=== PATIENT | male | born 1985 | race Caucasian/White ===

== ENCOUNTER 2016-09-27 17:11 | Emergency (ER) | payer OTHER ==
--- NOTE | 2016-09-27 18:40 | UCPHY ---
H & P Patient Type: New Chief Complaint Nursing Narrative: c/o URI 3 wk ago - since then pain in throat with lum, this am chest tightness denies cough- HPI/ROS: HPI CHIEF COMPLAINT: Lump in throat, cough HISTORY OF PRESENT ILLNESS: This patient 30-year-old male, otherwise healthy no significant medical or surgical history he tells me approximately 2-3 weeks ago he had upper respiratory tract infection since then over the past 3 weeks he has had a sensation that there is a lump in his throat when he swallows. He denies fever, neck pain, meningeal signs, headache, chest pain, shortness of breath. At times he endorses a cough. States for the past 3 days the lump in his throat has gotten worse. He is able swallow he does not have any drooling. Past Medical History: No significant medical history Past Surgical History: no significant surgical history Social History: Daily alcohol use, denies drugs or tobacco products Family History: Noncontributory ROS REVIEW OF SYSTEMS: A comprehensive 10 point review of systems is otherwise negative aside from elements mentioned in the history of present illness. Exam Constitutional appears well nontoxic, triage nursing summary reviewed, vital signs reviewed, awake/alert. Eyes normal conjunctivae and sclera, EOMI, PERRLA. HENT posterior pharynx, specifically uvula midline, no swelling, no exudate, no redness, no stridor, normal swallow no submandibular lymphadenopathy, normal inspection, atraumatic, moist mucus membranes, no epistaxis, neck supple/ no meningismus, no raccoon eyes. Respiratory clear to auscultation bilaterally, normal breath sounds, no respiratory distress, no wheezing. Cardiovascular rate normal, regular rhythm, no murmur, no edema, distal pulses normal. Gastrointestinal soft, non-tender, no rebound, no guarding, normal bowel sounds, no distension, no pulsatile mass. Genitourinary no CVA tenderness. Musculoskeletal no midline vertebral tenderness, full range of motion, no calf swelling, no tenderness of extremities, no meningismus, good pulses, neurovascularly intact. Skin pink, warm, & dry, no rash, skin atraumatic. Neurologic awake, alert and oriented x 3, AAOx3, moves all 4 extremities equally, motor intact, sensory intact, CN II-XII intact, normal cerebellar, normal vision, normal speech. Psychiatric normal mood/affect. Heme/Lymph/Immune no lymphadenopathy. Differential Diagnosis: Includes but is not limited to in a particular order, upper respiratory tract infection, throat irritation, foreign body, bronchitis, pneumonia Uvulitis, strep pharyngitis, GERD, esophagitis, reflux Medical Decision Making: plan for this patient is to have a soft tissue neck x- ray to look at the prevertebral space, as well as chest x-ray two view. These x -rays are normal as this patient appears well nontoxic no fever will refer him to Ear Nose and Throat to have a scope of the back of his throat. He is agreeable for this. Re-evaluation: ED x-ray soft tissue neck: Negative for acute abnormality. No soft tissue swelling. ED x-ray chest x-ray two view: negative for acute abnormality. 1846: I will place this patient on a short course of Decadron and Zantac. Understands follow-up with ENT palpation. Possibility this is GERD. Source: Patient - Personal History Current Tetanus Diphtheria and Acellular Pertussis (TDAP): Yes - Medical/Surgical History Other PMH: denies - Family History Significant Family History: No pertinent family hx - Social History Smoking Status: Never smoked Constitutional: Initial Vital Signs Temperature (C) 36.6 C 09/27/16 17:42 Heart Rate 80 09/27/16 17:42 Respiratory Rate 18 09/27/16 17:42 Blood Pressure 154/83 H 09/27/16 17:42 O2 Sat (%) 98 09/27/16 17:42 O2 Delivery Mode Room Air Allergies/Adverse Reactions: No Known Allergies Allergy (Unverified 09/27/16 17:42) Home Medications: Medication Instructions Recorded Dexamethasone [Decadron 4 MG (*)] 4 mg PO DAILY #4 tab 09/27/16 Ranitidine HCl [Zantac] 150 mg PO DAILY #30 tablet 09/27/16 Medical Decision Making - Data Points Laboratory Results: 09/27/16 09/27/16 Unknown 18:12 Group A Strep Screen NEGATIVE (NEGATIVE) Group A Strep DNA Pending Departure - Departure Disposition: Home, Routine, Self-Care Clinical Impression: Throat pain in adult Condition: Good Instructions: Pharyngitis (ED) Additional Instructions: 1. Return to the urgent care or emergency room if he develops worsening symptoms questions or concerns. 2. please follow up with your ear and nose and throat referral. 3. Decadron for 4 days Referrals: NONE *PRIMARY CARE P,. [Primary Care Provider] - As per Instructions Prescriptions: Dexamethasone [Decadron 4 MG (*)] 4 mg PO DAILY #4 tab Ranitidine HCl [Zantac] 150 mg PO DAILY #30 tablet - PQRS PQRS Measurement: n/a
[2016-09-27 23:21] VITALS: BP 151/82; PULSE 88; RESP 20; TEMP 98.4; O2SAT 94
== END 2016-09-27 21:20 | disposition home or self-care (01) ==
LOC: CED 17:11
DX: R07.0 Pain in throat (principal)
CPT/HCPCS: 70360-PO; 71020-PO; 87880-PO; 99204-PO; G0463-PO